=== PATIENT | female | born 1995 | race Caucasian/White ===

== ENCOUNTER 2017-06-26 21:46 | Emergency (ER) | payer OTHER ==
[~2017-06-26] VITALS: Ht 162.6 cm; Wt 103.8 kg
[2017-06-26] MEDS ORDERED: SODIUM CHLORIDE 0.9% 1,000ML IVBOLUS ONE (22:30)
[2017-06-26] MEDS ORDERED: SODIUM CHLORIDE FLUSH 10ML SYR IVF ONE (22:30)
[2017-06-26] MEDS ORDERED: PLEASE ENTER ALLERGIES MC SCH ×2 (22:30)
[2017-06-26] MEDS ORDERED: ONDANSETRON 2MG/ML, 2ML IVPush ONE (22:30)
[2017-06-26] MEDS ORDERED: ONDANSETRON 2MG/ML, 2ML ONE (22:39)
[2017-06-26] MEDS ORDERED: HYDROmorphone 1 MG/ML, 1ML ONE ×2 (22:39→23:57)
[2017-06-26] MEDS: HYDROmorphone 1 MG/ML, 1ML IVPush PRN (22:48)
[2017-06-26 22:55] LABS: BLOOD UREA NITROGEN 13 mg/dL (7-18)
[2017-06-26 23:01] LABS: ASPARTATE AMINO TRANSFERASE 25 U/L (15-37)
[2017-06-26] MEDS ORDERED: OMNIPAQUE 350 MG/ML, 100ML BOTTLE ONE (23:29)
[2017-06-26] MEDS ORDERED: CEFOTETAN PMX 1GM/50ML 50 ML ONE (23:57)
[2017-06-27] MEDS ORDERED: HYDROmorphone 2 MG/ML, 1ML IVPush ONE
[2017-06-27] MEDS ORDERED: CEFOTETAN PMX 1GM/50ML 50 ML IV ONE
[2017-06-27] MEDS ORDERED: D5%-0.45NACL+KCL 40MEQ 1,000 ML IV SCH (01:30)
[2017-06-27] MEDS: HYDROmorphone 1 MG/ML, 1ML IVPush PRN (01:50)
[2017-06-27] MEDS ORDERED: NS + 40MEQ KCL 1,000 ML IV ONE (02:24)
[2017-06-27] MEDS ORDERED: ONDANSETRON 2MG/ML, 2ML ONE (02:25)
[2017-06-27 02:35] VITALS: BP 121/78
== END 2017-06-27 03:09 | disposition short-term general hospital (02) ==
LOC: ED 23:51
DX: K35.3 Acute appendicitis with localized peritonitis (principal)
CPT/HCPCS: 36415; 74177; 80053; 81001; 83690; 84703; 85025; 87086; 96361; 96365; 96375; 99285; J1170; J2405; J3480; J7030; Q9967; S0074

== ENCOUNTER 2018-10-31 10:33 | Emergency (ER) | payer MEDICAID ==
[~2018-10-31] VITALS: Ht 162.6 cm; Wt 112.9 kg
[2018-10-31] MEDS ORDERED: OXYMETAZOLINE NASAL SPRAY 0.05%, 15ML ONE (11:23)
[2018-10-31] MEDS ORDERED: OXYMETAZOLINE NASAL SPRAY 0.05%, 15ML NAS ONE (11:30)
[2018-10-31 11:49] LABS: RAPID INFLUENZA A Negative (Negative); RAPID INFLUENZA B Negative (Negative)
[2018-10-31 12:19] VITALS: BP 112/54
== END 2018-10-31 12:21 | disposition home or self-care (01) ==
LOC: ED 12:02
DX: O26.893 Other specified pregnancy related conditions, third trimester (principal); Z3A.33 33 weeks gestation of pregnancy; J01.00 Acute maxillary sinusitis, unspecified; Z90.49 Acquired absence of other specified parts of digestive tract
CPT/HCPCS: 87400; 99283

== ENCOUNTER 2019-11-04 20:15 | Emergency (ER) | payer OTHER ==
[~2019-11-04] VITALS: Ht 162.6 cm; Wt 104.5 kg
[2019-11-04 20:45] VITALS: BP 147/67
--- NOTE | 2019-11-04 21:59 | NUR ---
pt to rm from lobby
[2019-11-04] MEDS ORDERED: DEXAMETHASONE 4 MG TABLET PO ONE (22:00)
[2019-11-04] MEDS ORDERED: DEXAMETHASONE 4 MG TABLET ONE (22:20)
[2019-11-04] MEDS ORDERED: HYDROcodone/APAP 7.5-325MG/15ML UDC ONE (22:21)
[2019-11-04] MEDS ORDERED: AMOXICILLIN/CLAV 875-125MG TABLET ONE (22:21)
[2019-11-04] MEDS ORDERED: HYDROcodone/APAP 7.5-325MG/15ML UDC PO ONE (22:30)
[2019-11-04] MEDS ORDERED: AMOXICILLIN/CLAV 875-125MG TABLET PO ONE (22:30)
== END 2019-11-04 23:16 | disposition home or self-care (01) ==
LOC: ED 22:40
DX: J02.0 Streptococcal pharyngitis (principal); Z90.89 Acquired absence of other organs
CPT/HCPCS: 87081; 87147; 87880; 99284

== ENCOUNTER 2019-12-18 22:09 | Emergency (ER) | payer SELFPAY ==
[~2019-12-18] VITALS: Ht 162.6 cm; Wt 106.7 kg
--- NOTE | 2019-12-19 00:30 | NUR ---
pt to room from lobby
[2019-12-19 00:58] LABS: BASOPHILS # (AUTO) 0.17 x10^3/uL (0-0.1); BASOPHILS % (AUTO) 1 % (0-1); EOSINOPHILS # (AUTO) 0.16 x10^3/uL (0-0.4); EOSINOPHILS % (AUTO) 1 % (1-7); LYMPHOCYTES # (AUTO) 4.04 x10^3/uL (1-3.4); LYMPHOCYTES % (AUTO) 34 % (22-44); MD NO; MEAN CORPUSCULAR HEMOGLOBIN 27.8 pg (27.0-34.8); MEAN CORPUSCULAR VOLUME 84.3 fL (80-100); MEAN PLATELET VOLUME 9.2 fL (7.4-10.4); MONOCYTES # (AUTO) 0.67 x10^3/uL (0.2-0.8); MONOCYTES % (AUTO) 6 % (2-9); NEUTROPHILS # (AUTO) 6.99 x10^3/uL (1.8-6.8); NEUTROPHILS % (AUTO) 58 % (42-75); PLATELET COUNT 238 x10^3/uL (130-400); RED BLOOD COUNT 4.43 x10^6/uL (3.82-5.3); RED CELL DISTRIBUTION WIDTH 15.5 % (9.6-15.2)
--- NOTE | 2019-12-19 01:00 | NUR ---
THIS GERARDO 24 YO FEMALE COMING IN FOR DIZZINESS AND LIGHTHEAEDNESS, PATIENT STATES "MY CHEST GETS A LITTLE TIGHT AND IT FEELS LIKE I CAN'T BREATHE". LUNG SOUNDS ARE CLEAR THROUGHOUT, REGULAR RATE AND RHYTHM. PATIENT STATES THESE SYMPTOMS HAPPENED WITH LAST WELL. PATIENT IS , UNKNOWN GESTATIONAL AGE, LMP October. PATIENT C/O MILD CRAMPING, DENIES DISCHARGE OR SPOTTING, DENIES N/V. PATIENT IS G2PQ WITH CHILD AT HOME THAT WAS BORN FULL TERM WITH NO COMPLICATIONS. ALL MONITORING IN PLACE, NSR ON 5 LEAD. VSS, NAD, CALL LIGHT IN REACH
[2019-12-19 01:11] LABS: ALANINE AMINOTRANSFERASE 16 U/L (12-78); ALBUMIN 3.2 g/dL (3.4-5.0); ANION GAP 6 mmol/L (5-15); CALCIUM 8.5 mg/dL (8.5-10.1); CHLORIDE 109 mmol/L (98-107); CREATININE 0.76 mg/dL (0.55-1.02)
--- NOTE | 2019-12-19 01:20 | NUR ---
Received report and assumed patient care. Patient resting comfortably. Awaiting transvaginal ultrasound.
--- NOTE | 2019-12-19 01:21 | NUR ---
REPORT TO FABIOLA MCCAIN. PLAN OF CARE DISCUSSED
[2019-12-19 01:25] LABS: MICROSCOPIC NOT IND
[2019-12-19 01:28] LABS: ALKALINE PHOSPHATASE 57 U/L (45-117); BILIRUBIN,TOTAL 0.2 mg/dL (0.2-1.0); TOTAL PROTEIN 6.9 g/dL (6.4-8.2)
[2019-12-19 01:29] LABS: CULTURE INDICATED? NO
[2019-12-19 02:14] VITALS: BP 101/53
== END 2019-12-19 02:16 | disposition home or self-care (01) ==
LOC: ED 12-19 01:42
DX: O26.891 Other specified pregnancy related conditions, first trimester (principal); R55 Syncope and collapse; R07.89 Other chest pain; Z90.89 Acquired absence of other organs; Z3A.01 Less than 8 weeks gestation of pregnancy
CPT/HCPCS: 36415; 76801; 80053; 81003; 84702; 85025; 86901; 93005; 99284